=== PATIENT | male | born 1935 | race Caucasian/White ===

== ENCOUNTER 2018-05-22 19:06 | Inpatient (IN) | END 2018-05-26 16:05 | disposition home health service (06) | DRG 629 ==

== ENCOUNTER 2019-03-03 19:12 | Emergency (ER) | payer OTHER ==
[~2019-03-03] VITALS: Ht 162.6 cm; Wt 59.9 kg
[~2019-03-03 19:12] MED LIST: ASPI325T32 PO; GLIP5TAB13 PO; HYDR-3601 PO; LEVO500T48 PO; MULTI PO; SITA25TA3 PO; SODI473S16 IRR
[2019-03-03 19:15] VITALS: Ht 162.6 cm; Wt 59.9 kg
--- NOTE | 2019-03-03 19:51 | ERD ---
ER Documentation Chief Complaint Chief Complaint dialysis shunt to left arm bleeding today. states it hasnt stopped. HPI 83-year-old male with a history of ESRD presenting with bleeding from his left upper extremity fistula site. His dialysis was this morning. There was some bleeding there which stopped. However at home, the bleeding started again. He placed a pressure dressing at home and came to the ER. Currently the bleeding has stopped. He has no other complaints. ROS All systems reviewed and are negative except as per history of present illness. Medications Home Meds Active Scripts Hydrocodone Bit-Acetaminophen (Hydrocodone Bit-APAP) 5-325MG Tablet, 1 TAB PO Q6H PRN for MODERATE PAIN LEVEL 4-6 for 10 Days, #30 TAB Prov:OSEI GARCIA MD 05/26/18 Levofloxacin* (Levaquin*) 500 Mg Tablet, 500 MG PO DAILY for 14 Days, #14 TAB Prov:OSEI GARCIA MD 05/26/18 Sodium Hypochlorite (H-CHLOR 12) 473 Ml Solution, 1 APPLIC IRR DAILY for 30 Days, #1 BOTTLE 3 Refills Prov:OSEI GARCIA MD 05/26/18 Aspirin (Aspir-Quiana) 325 Mg Tablet.dr, 325 MG PO DAILY for 30 Days, #30 TAB 3 Refills Prov:OSEI GARCIA MD 05/26/18 Reported Medications Sitagliptin* (Januvia*) 25 Mg Tablet, 25 MG PO DAILY, #30 TAB 05/22/18 Multivitamins* (Theragran*) 1 Tab Tab, 1 TAB PO DAILY, TAB 05/22/18 Glipizide* (Glipizide*) Unknown Strength Tablet, PO AC BREAKFAST, TAB 05/22/18 Allergies Allergies: Coded Allergies: No Known Allergy (Unverified , 05/22/18) PMhx/Soc Hx Neurological Disorder: No Hx Respiratory Disorders: No Hx Cardiac Disorders: No Hx Psychiatric Problems: No Hx Miscellaneous Medical Probl: Yes (ESRD on hemodialysis, diabetes) Hx Alcohol Use: No Hx Substance Use: No Hx Tobacco Use: No FmHx Family History: No coronary disease Physical Exam Vitals Vital Signs Date Temp Pulse Resp B/P (MAP) Pulse Ox O2 O2 Flow FiO2 Time Delivery Rate 03/03/19 98.2 86 20 149/65 100 19:15 (93) Physical Exam Const: No acute distress Resp: Clear to auscultation bilaterally Cardio: Regular rate and rhythm, no murmurs Skin: No petechiae or rashes Ext: Left upper arm AV fistula site with puncture wound and dried blood. No active bleeding. Palpable thrill. No cyanosis, or edema. 2+ radial pulse distally. Neur: Awake and alert Psych: Normal Mood and Affect Procedures/MDM Patient's bleeding has resolved. He is hemodynamically stable. Skin glue was applied to the puncture wound and pressure dressing was applied over that. Patient is stable for discharge. Return precautions were discussed. Care for bleeding discussed at home if it does recur. Departure Diagnosis: Primary Impression: Problem with dialysis access Encounter type: initial encounter Qualified Codes: T82.898A - Other specified complication of vascular prosthetic devices, implants and grafts, initial encounter Condition: Stable Patient Instructions: Dialysis Shunt (Fistula) Bleeding Referrals: NO PRIMARY,CARE PHYSICIAN (PCP) TORRES GONZALEZ MD Mar 03, 2019 19:51
[2019-03-03 20:02] VITALS: BP 149/69; PULSE 79; RESP 19
== END 2019-03-03 20:02 | disposition home or self-care (01) ==
LOC: E/R 19:12
DX: T82.898A Other specified complication of vascular prosthetic devices, implants and grafts, initial encounter (principal); E11.22 Type 2 diabetes mellitus with diabetic chronic kidney disease; N18.6 End stage renal disease; Y82.9 Unspecified medical devices associated with adverse incidents; Z79.82 Long term (current) use of aspirin; Z79.84 Long term (current) use of oral hypoglycemic drugs; Z99.2 Dependence on renal dialysis
CPT/HCPCS: 99282